=== PATIENT | female | born 1945 | race Caucasian/White ===

== ENCOUNTER 2016-11-12 10:38 | Emergency (ER) | payer BC, MEDICARE ==
[~2016-11-12] VITALS: Ht 152.4 cm; Wt 56.0 kg
[~2016-11-12 10:38] MED LIST: ACYC400T PO; CALC-187 PO; CENTTAB PO; DOCO1CAP2; GABA400C5 PO; GLIP10TA6 PO; GLUCOSE LANCETS TD; Glucose Test Strips TD; HYDR200T3 PO; LEVOTAB PO; LISI-519 PO; MONT10TA4 PO; OMEP20TA PO; SIMV20TA PO; TRAM50TA PO; [UNRECOGNIZED DRUG - CODE]
[2016-11-12 10:41] VITALS: BP 179/82; PULSE 79; RESP 20; TEMP 98.4; O2SAT 98
--- NOTE | 2016-11-12 11:32 | PD ---
HPI Chief Complaint: Injury Time Seen by Provider: 11:16 Travel History International Travel<30 days: No Contact w/Intl Traveler<30days: No Traveled to known affect area: No History of Present Illness HPI Pleasant 71-year-old female here with complaint of left foot pain. Patient states that she fell approximately 2 weeks ago. She was holding her large dog who ran after her cat and pulled the leash and resulted in a mechanical fall. Patient injured her left foot. She states that ever since it has been giving her some pain over the mid metatarsal region. She is able to ambulate. However with some pain. She notes that last night while sleeping at this well up more prompting her ER visit today. PFSH Past Medical History Arthritis: Yes Asthma: Yes Cardiovascular Problems: Yes Diabetes: Yes Patient Takes Glucophage: Yes Hypertension: Yes Social History Alcohol Use: No Tobacco Use: No Substance Use: No Allergies-Medications (Allergen,Severity, Reaction): Coded Allergies: Penicillin (Verified Allergy, Intermediate, Swelling, 11/12/16) Sulfa (Verified Allergy, Intermediate, Swelling, 11/12/16) Reported Meds & Prescriptions Reported Meds & Active Scripts Active Glipizide 10 Mg Tab 10 Mg PO DAILY Take 30 minutes before a meal Acyclovir 400 Mg Tab 400 Mg PO BID Lisinopril 5 Mg Tab 5 Mg PO DAILY Simvastatin 20 Mg Tab 20 Mg PO HS Reported Tramadol (Tramadol HCl) 50 Mg Tab 50 Mg PO Q8H PRN Gabapentin 400 Mg Cap 400 Cap PO QID Montelukast (Montelukast Sodium) 10 Mg Tab 10 Mg PO HS Dha (Docosahexaenoic Acid) 200 Mg Cap Centrum Silver (Multiple Vitamins W/ Minerals) 1 Tab 1 Tab PO DAILY Omeprazole 20 Mg Tab 20 Mg PO DAILY Levocetirizine 5 Mg Tab 5 Mg PO DAILY Hydroxychloroquine Sulfat (Hydroxychloroquine Sulfate) Unknown Strength Tab Unknown Dose PO DAILY PRN Review of Systems Except as stated in HPI: all other systems reviewed are Neg Physical Exam Narrative GENERAL: Well-appearing female in no acute distress SKIN: Focused skin assessment warm/dry. HEAD: Normocephalic. EYES:No scleral icterus. No injection or drainage. ENT: Mucous membranes pink and moist. CARDIOVASCULAR: Regular rate and rhythm. RESPIRATORY: No accessory muscle use. MUSCULOSKELETAL: Left foot without obvious deformity, edema. Patient complains of tenderness to palpation over the metatarsal tarsal region. There is no notable ecchymosis. Distal sensation, pulses, range of motion intact. Patient is able to bear weight and ambulate without difficulty albeit note some pain. NEUROLOGICAL: Awake and alert. Normal speech. PSYCHIATRIC: Appropriate mood and affect; insight and judgment normal. Data Data Last Documented VS Vital Signs Date Time Temp Pulse Resp B/P Pulse Ox O2 Delivery O2 Flow Rate FiO2 11/12/16 10:41 98.4 79 20 179/82 98 Room Air Orders Foot, Complete ([id number]) (11/12/16 ) [facility] Medical Decision Making Medical Screen Exam Complete: Yes Emergency Medical Condition: Yes Medical Record Reviewed: Yes Differential Diagnosis 71-year-old female here with complaint of left foot pain since mechanical fall 2 weeks ago. Differential includes metatarsal fracture, tarsal fracture, stress fracture, sprain. Narrative Course X-ray of the left foot was obtained showing no acute fracture. Patient was offered hard soled shoe to help with comfort and given outpatient podiatry follow-up. Diagnosis Primary Impression: Sprain of left foot Qualified Code: S93.602A - Sprain of left foot, initial encounter Referrals: Simi Barkley DPM call for appointment Additional Instructions: X-rays today were normal. A follow-up with research and development manager as discussed. Pain medications as needed. Med/Other Pt SpecificInfo: Prescription(s) given Scripts Hydrocodone-Acetaminophen ([place])5-325 mg Tab1 Tab PO Q4H PRN (PAIN) #20 TAB Ref 0 Prov:Yanelis Zimmerman MD 11/12/16 Disposition: 01 DISCHARGE HOME Condition: Stable Yanelis Zimmerman MD Nov 12, 2016 11:31
--- NOTE | 2016-11-12 12:06 | RADRPT ---
EXAM DATE/TIME: 11/12/2016 11:42 [facility] COMPARISON: No previous studies available for comparison. INDICATIONS : Left foot pain, hurt walking her dog. MEDICAL HISTORY : None. SURGICAL HISTORY : None. ENCOUNTER: Initial ACUITY: 2 weeks PAIN SCORE: 10/10 LOCATION: Left foot FINDINGS: No definite fractures, or dislocations are identified. No definite lytic or sclerotic lesion is seen . Slight osteopenia is seen. 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 IMPRESSION: Chronic changes and no definite fracture for technique. Mark Escobar MD on November 12, 2016 at 12:04 Board Certified Radiologist. This report was verified electronically.
[2016-11-12] MEDS ORDERED: NORC5TAB PO (12:11)
[2017-01-21] MEDS ORDERED: OMEP20TA PO (11:18)
== END 2016-11-12 12:53 | disposition home or self-care (01) ==
LOC: NEPD 10:38
DX: S93.602A Unspecified sprain of left foot, initial encounter (principal); E11.9 Type 2 diabetes mellitus without complications; Z79.84 Long term (current) use of oral hypoglycemic drugs; I10 Essential (primary) hypertension; W01.0XXA Fall on same level from slipping, tripping and stumbling without subsequent striking against object, initial encounter; Y93.K1 Activity, walking an animal
CPT/HCPCS: 73630; 99283; L3260